=== PATIENT | male | born 1995 | race Caucasian/White ===

== ENCOUNTER 2017-10-05 10:46 | Emergency (ER) | payer OTHER ==
[~2017-10-05] VITALS: Ht 177.8 cm; Wt 81.0 kg
[2017-10-05 10:48] VITALS: BP 142/90
[2017-10-05] MEDS ORDERED: DIPH,PERTUSS(ACELL),TET VAC/PF 0.5 ML IM-VACC ONE ×2 (11:30→11:37)
[2017-10-05] MEDS ORDERED: BACITRACIN ZINC OINT 500U/GM, 0.9 GM ONE (11:54)
[2017-10-05] MEDS ORDERED: CEFAZOLIN 1,000 MG ONE (12:24)
[2017-10-05] MEDS ORDERED: CEFAZOLIN 1,000 MG IM ONE (13:00)
== END 2017-10-05 12:48 | disposition home or self-care (01) ==
LOC: ED 12:40
DX: S61.210A Laceration without foreign body of right index finger without damage to nail, initial encounter (principal); L03.011 Cellulitis of right finger; W45.8XXA Other foreign body or object entering through skin, initial encounter; Y93.89 Activity, other specified; Y92.89 Other specified places as the place of occurrence of the external cause; Y99.8 Other external cause status
CPT/HCPCS: 90471; 90715; 96372; 99284; J0690